=== PATIENT | female | born 1945 | race Caucasian/White ===

== ENCOUNTER → 2023-10-04 11:45 | Outpatient (REF) | payer MEDICARE, MEDICAID, SELFPAY | LOC: HWWDC 11:45 | PROVIDERS: ATTENDING PHYSICIAN Nurse Practitioner | DX: Z12.31 Encounter for screening mammogram for malignant neoplasm of breast (principal) | CPT/HCPCS: 77063; 77067 ==

== ENCOUNTER → 2024-02-04 10:06 | Outpatient (REF) | payer MEDICARE, MEDICAID, SELFPAY | LOC: HWRAD 10:06 | PROVIDERS: ATTENDING PHYSICIAN Surgery | DX: K80.20 Calculus of gallbladder without cholecystitis without obstruction (principal) | CPT/HCPCS: 76700 ==

== ENCOUNTER → 2024-08-02 09:33 | Outpatient (REF) | payer MEDICARE, MEDICAID, SELFPAY | LOC: RAD 09:33 | PROVIDERS: ATTENDING PHYSICIAN Orthopaedic Surgery; FAMILY PHYSICIAN Nurse Practitioner | DX: M19.011 Primary osteoarthritis, right shoulder (principal) | CPT/HCPCS: 73200 ==

== ENCOUNTER → 2024-09-25 13:58 | Outpatient (REF) | payer MEDICARE, MEDICAID, SELFPAY | LOC: RAD 13:58 | PROVIDERS: ATTENDING PHYSICIAN Nurse Practitioner | DX: M81.0 Age-related osteoporosis without current pathological fracture (principal); E66.9 Obesity, unspecified | CPT/HCPCS: 77080 ==

== ENCOUNTER → 2024-12-04 10:51 | Outpatient (REF) | payer MEDICARE, MEDICAID, SELFPAY | LOC: HWWDC 10:51 | PROVIDERS: ATTENDING PHYSICIAN Nurse Practitioner | DX: Z12.31 Encounter for screening mammogram for malignant neoplasm of breast (principal) | CPT/HCPCS: 77063; 77067 ==

== ENCOUNTER → 2025-03-06 11:10 | Outpatient (REF) | payer MEDICARE, MEDICAID, SELFPAY | LOC: RAD 11:10 | PROVIDERS: ATTENDING PHYSICIAN Nurse Practitioner | DX: R07.81 Pleurodynia (principal) | CPT/HCPCS: 71101 ==

== ENCOUNTER 2025-04-08 15:04 | Inpatient (IN) | payer MEDICARE, MEDICAID, SELFPAY ==
[2025-04-08] VITALS (7 sets, daily range): BP systolic 124–135; BP diastolic 64–99; BMI 24.9
[2025-04-08 12:34] LABS: Hematocrit 33.7 % (37.0-47.0); Hemoglobin 12.1 g/dL (12.0-16.0); Mean Corp Hgb Conc. 35.9 g/dL (33.0-37.0); Mean Corpuscular Volume 94.9 fL (81.0-99.0); Nucleated Red Blood Cells % 0 %; Platelet Count 218 10^3/uL (130-400); Red Cell Dist. Width 12.6 % (11.5-14.5)
[2025-04-08 12:48] LABS: ALT (SGPT) 30 U/L (0-35); AST (SGOT) 32 U/L (14-36); Albumin 4.1 g/dl (3.5-5.0); Alkaline Phosphatase 96 U/L (38-126); Blood Urea Nitrogen 12 mg/dl (7-17); Calcium 8.6 mg/dl (8.4-10.2); Carbon Dioxide 25 mmol/L (22-30); Chloride 96 mmol/L (98-107); Estimated Creatinine Clearance 61 ml/min; Glucose 130 mg/dl (70-99); Potassium 4.6 mmol/L (3.5-5.1); Sodium 126 mmol/L (135-145); Total Protein 7.5 g/dl (6.3-8.2); eGFR > 60.00
--- NOTE | 2025-04-08 13:09 | ED.GENMED ---
History of Present Illness
General
Chief Complaint: Cold/Flu/URI Symptoms
Source: patient and correction
Exam Limitations: developmental stage
Time Seen by Provider: 04/08/25 12:54
History of Present Illness
History of Present Illness:
80yoF with a history of seizures, bipolar disorder, and GERD presenting via EMS for evaluation of generalized weakness. Patient is a resident at [facility]. She tested positive for COVID 2 days ago and was started on Paxlovid. Staff
reports that she has been increasing weak and is now unable to stand which is unusual for her. She typically ambulates with a walker and is talkative. She now cannot keep her eyes open. She did have a fall last night but correction staff denies
any injuries from this. Her oxygen saturation was checked today which was 94% and she was sent to the ED for evaluation. Patient currently complains of fatigue and nausea. She denies any chest pain or shortness of breath.
Past History
Past History
ED Past Medical History: GERD, Seizures, Psychiatric (Borderline personality, mental retardation, organic mood disorder,) and Other (Osteoporosis)
ED Past Surgical History: None and Orthopedic (Total right hip replacement)
Social History
Tobacco: Non-smoker
Phy Exam
Physical Exam
Physical Exam:
Appears fatigued, non-toxic
General Physical Exam
General Presentation: no apparent distress
General Skin: warm and dry
General Habitus: elderly
General Mental: alert
General Hydration: dry mucous membranes
ENT Exam
ENT Exam: normocephalic
Cardiovascular Exam
Cardiovascular Exam: regular rate/rhythm
Pulmonary Exam
Pulmonary Exam: no respiratory distress, no rales, no crackles, no rhonchi, no stridor and decreased breath sounds
Neurological Exam
Neurological Exam: alert
Skin Exam
Skin Exam: normal color and warm/dry
Psychiatric Exam
Psychiatric Exam: normal mood/affect
Course
Orders/Labs/Results
Orders:
Orders
04/08/25 12:24
Complete Blood Count/With Diff Urgent
Comprehensive Metabolic Panel Urgent
Serum Osmolality Urgent
TSH Reflex To Free T4 Urgent
Comment: ADD ON
04/08/25 13:06
0.9% Sodium Chloride 500 ml [Nss] 500 ml IV BOLUS
CR Chest - 2 Views Urgent
Comment:
Reason For Exam: COVID+
04/08/25 13:16
Chloride, Urine [S] Urgent
Date Specimen was Collected: 04/08/25
Time Specimen was Collected: 13:12
Osmolality, Random Urine Urgent
Date Specimen was Collected: 04/08/25
Time Specimen was Collected: 13:12
Urine Sodium Urgent
Date Specimen was Collected: 04/08/25
Time Specimen was Collected: 13:12
04/08/25 14:20
Add On- LAB Urgent
Tests Added?: serum osmo, urine NA, tsh with free t4 reflex
04/08/25 14:34
Admit/Transfer Patient As Directed
Co-Sign Provider:
Level of Care: Inpatient admission
Assign to:: Medical/Surgical
Physician / Group: kiersten peters
Diagnosis: Weakness secondary to COVID-19 infection, hyponatremia
Reason for Hospitalization: Weakness secondary to COVID-19 infection, hyponatremia
Expected length of stay greater than two midnights?: Yes
ELOS- Estimated Length of Stay in days: 3
I certify the patient meets the requirements for IP care: Yes
Code Status As Directed
Resuscitation Status: Full Code
04/08/25 14:39
PRN Pain Medication Management As Directed
May give lesser potent ordered pain med per pt: Yes
preference::
Protocol:: Medication orders for pain may be administered in a
manner that supports deferring to patient preference
when the pt is:
- Requesting an ordered lesser potent pain medication.
Least to most potent pain medications are defined
as: acetaminophen < NSAID < tramadol < opioids
(morphine, oxycodone, hydromorphone).
- Requesting a lesser dose of the same medication IF
ORDERED.
- Requesting a less intrusive route of administration
if both routes are prescribed by the provider (PO <
IV).
04/08/25 14:52
COVID-19 Antigen Urgent
Source: Nasal Swab
04/08/25 Dinner
Regular
At Your Request: Full Participation
Does patient need a safe tray?: No
04/08/25 16:58
0.9% Sodium Chloride 1000 ml [Nss] 1,000 ml IV 100 mls/hr
Acetaminophen [Tylenol] 650 mg PO Q4HPRN PRN
Carbamazepine Extended Release [Tegretol Xr (Extended Release)] 400 mg PO TID
Ondansetron Injectable [Zofran] 4 mg IV Q6HPRN PRN
aripiprazole 20 mg PO QHS
dtyxavjguieqx-ZP-apqyzufumdk 10 ml PO Q4H PRN
04/08/25 16:58
Activity As Directed
Activity Level: With Assistance
Comment: Uses walker at baseline
Nursing to Place Non Medication Order As Directed
Physician Order: Patient reports she cannot read and needs help with ordering all of her meals
Above order entered?: Yes
Precautions As Directed
Type of Precautions: Droplet
Comment: covid 19 infection
Vital Signs As Directed
Frequency: Per unit guidelines
Pt Eval And Treat Routine
Activity Level: With Assistance
DX Deep Vein Thrombosis Video Routine
04/08/25 18:00
Enoxaparin Sodium [Lovenox] 40 mg SC QPM
Ferrous Sulfate [Feosol] 325 mg PO QPM
Multivitamin [Theragran] 1 tablet PO QPM
calcium carbonate 500 mg PO QPM
04/08/25 20:00
Lorazepam [Ativan] 0.5 mg PO BID
04/09/25 06:00
Complete Blood Count/With Diff IN AM
Comprehensive Metabolic Panel IN AM
04/09/25 08:00
Famotidine [Pepcid] 40 mg PO DAILY
04/10/25 06:00
Complete Blood Count/With Diff IN AM
Comprehensive Metabolic Panel IN AM
04/11/25 06:00
Complete Blood Count/With Diff IN AM
Comprehensive Metabolic Panel IN AM
Abnormal Lab Results
04/08/25 04/08/25 04/08/25
12 13:16 14:52
WBC 4.7 L 10^3/uL
(4.8-10.8)
RBC 3.55 L 10^6/uL
(4.20-5.40)
Hct 33.7 L %
(37.0-47.0)
MCH 34.1 H pg
(27.0-31.0)
Absolute Lymphs (auto) 0.5 L 10^3/uL
(1.2-3.4)
Neutrophils % 81.1 H %
(42.2-75.2)
Lymphocytes % 10.4 L %
(20.5-51.1)
Sodium 126 L mmol/L
(135-145)
Chloride 96 L mmol/L
(98-107)
Creatinine 0.4 L mg/dL
(0.6-1.0)
Glucose 130 H mg/dl
(70-99)
Serum Osmolality 268 L mOsm/kg
(275-300)
Urine Sodium 16 L mmol/L
(30-90)
SARS-CoV-2 Antigen Positive A
(Negative)
04/08/25 12:24
04/08/25 12:24
Vital Signs
Initial and Last Documented VS:
Initial Vital Signs
BP Pulse Ox
124/99 97
04/08/25 11:54 04/08/25 11:54
Last Documented Vital Signs
Temp Pulse Resp BP Pulse Ox
97.6 F 94 16 127/71 95
04/08/25 17:06 04/08/25 17:06 04/08/25 15:02 04/08/25 17:06 04/08/25 18:24
MDM/Problems Addressed
Differential Diagnosis Includes:
80yoF here with weakness. Tested positive for COVID 2 days ago. Had a fall last night at her correction. She appears fatigued on exam but is nontoxic. Oxygen saturation 97% on room air. Mucous membranes are dry. Differential diagnosis includes
but is not limited to: COVID, dehydration, NICOL, failure to thrive
Labs obtained prior to initial exam. Sodium is 126. Last sodium was 133 in 2022. CXR added which does not show any pneumonia. She clinically appears hypovolemic. IV fluid bolus ordered and patient admitted for further management.
*Pulse Oximetry
SaO2: 95
Oxygen Mode of Delivery: Room air
Patient hypoxic: no (97%)
*Critical Care Note
Total Time (30-74mins, 75-104mins- exclusive of procedures): Not Applicable
ED Attending Note
-
Portions of this chart may have been created with voice recognition software.� Occasional wrong word or��sound alike� substitutions may have occurred due to the inherent limitations of voice recognition software.
Discharge Plan
Departure
Patient Disposition: Admit
Date of Disposition: 04/08/25
Time of Disposition: 14:12
Presentation/result/management discussed w/ accepting MD/DO: Hospitalist
Discharge Problem:
COVID-19, Hyponatremia, Generalized weakness
Interventions
Interventions:
*Risk Screen - Suicide Last Done: 04/08/25 11:57
*General Assessment Last Done: 04/08/25 11:57
*Neglect/Abuse Screening Last Done: 04/08/25 11:57
*ED- Fall Risk Assessment Last Done: 04/08/25 11:57
*Nursing Disposition Last Done: 04/08/25 15:37
ED- Pulmonary Assessment Last Done: 04/08/25 11:57
Discharge Date and Time
Discharge Date/Time: 04/08/25 16:38
[2025-04-08] MEDS: NSS 500 IV (13:21)
--- NOTE | 2025-04-08 14:17 | HPS.HSE ---
Family Physician
-
Family Physician:
Chief Complaint
-
Weakness secondary to COVID-19 infection
History of Present Illness
80-year-old female who is a resident at [facility] who tested +2 days ago for COVID and was started on Paxlovid. Staff reported increased weakness unable to ambulate with her walker unable to keep eyes open. There was a reported fall last
night staff denied any injuries. Patient is awake alert oriented to name, place, symptoms. She reports feeling very tired and with nausea. She denies headache, fever, chills, chest pain, palpitations, cough, shortness of breath, vomiting,
diarrhea, urinary symptoms. She tells me she has difficulty reading and while in the hospital she needs help ordering food. In the ER she was noted to be hyponatremic with NA of 126. Patient has past medical history of mental retardation, organic
mood disorder, bipolar disorder, seizures, GERD, osteoporosis, chronic ambulatory dysfunction with walker at baseline, iron deficiency, restless leg syndrome.
Medical History
Past Medical History
Past Medical History: Reports Other
Additional Past Medical History:
mental retardation
organic mood disorder
bipolar disorder
seizures
GERD
osteoporosis
chronic ambulatory dysfunction with walker at baseline.
Left mastectomy
iron deficiency
restless leg syndrome.
Past Surgical History: Reports Other
Additional Past Surgical History:
Left mastectomy
Right total hip replacement
Social History
Tobacco: Non-smoker
Alcohol: None
Drug: None
Personal: Single
Living: Other ([facility])
Employment: Disabled
Family History
Family History: Not pertinent
Allergies / Home Medications
Allergies reflects when Allergies were last updated in [facility].
Home Medications with original date entered in [facility]
Allergy/Medication List:
Allergies
Allergy/AdvReac Type Severity Reaction Status Date / Time
caffeine Allergy Unknown Verified 04/08/25 11:56
Hydantoins Allergy Unknown Verified 04/08/25 11:56
phenytoin Allergy Unknown Verified 04/08/25 11:56
thioridazine Allergy Unknown Verified 04/08/25 11:56
NOT.[id number] - Not Allergy Unknown Uncoded 04/08/25 11:56
Converted 42. See Text.
NOT.[id number] - Not Allergy Unknown Uncoded 04/08/25 11:56
Converted 45. See Text.
Home Medications
acetaminophen 325 mg tablet 650 mg PO TIDPRN PRN mild pain/fever 04/08/25
aripiprazole 20 mg tablet 20 mg PO QHS 04/08/25
calcium carbonate 500 mg PO QPM 04/08/25
carbamazepine 400 mg tablet,extended release,12 hr 400 mg PO TID 04/08/25
famotidine 40 mg tablet 40 mg PO DAILY 04/08/25
ferrous sulfate 325 mg (65 mg iron) tablet 325 mg PO QPM 04/08/25
lidocaine 4 % topical patch 1 patch topical DAILY PRN pain/discomfort 04/08/25
lorazepam 0.5 mg tablet 0.5 mg PO BID 04/08/25
mupirocin 2 % topical ointment 1 applic topical BID under nose 04/08/25
nirmatrelvir 300 mg (150 mg x2)-ritonavir 100 mg tablet,dose pack (Paxlovid) 3 ea PO BID 04/08/25
flybxlegawrri-LJ-mmafljdmphc 5 mg-10 mg-100 mg/5 mL oral liquid 10 ml PO Q4H PRN cough 04/08/25
therapeutic multivitamin 1 tab PO QPM 04/08/25
Review of Systems
-
History Source: [facility]
A 12 point ROS was completed and negative except as noted: Yes
Constitutional: Reports Fatigue; Denies Fever or Chills
EENT: Reports Other (Dry mouth); Denies Sore Throat or Runny Nose
Respiratory: Denies Cough or Trouble Breathing
Cardiac: Denies Chest Pain, Diaphoresis, Palpitations or Syncope
Abdomen/GI: Reports Nausea; Denies Abdominal Pain, Vomiting, Diarrhea or Constipated
: Denies Dysuria, Frequency, Flank Pain or Incontinence
Musculoskeletal: Denies Joint Pain or Edema
Skin: Denies Itching or Rash
Neurological: Reports Weakness (Generalized); Denies Dizzy or Headache
Endocrine: Reports No Symptoms
Hematologic/Lymphatic: Reports No Symptoms
Psych: Reports Calm
Physical Exam
Vital Signs
Vital Signs
Temp Pulse Resp BP Pulse Ox
99 F 49 20 133/80 95
04/08/25 12:00 04/08/25 11:57 04/08/25 11:57 04/08/25 12:00 04/08/25 13:11
Physical Exam
General: No Fever or Chills
HEENT: NormoCephalic, Anicteric, PERRLA, [place] Conjunctivae, No Ptosis and Other (Dry oral mucosa)
Respiratory: Clear; No Wheezes, Rales or Rhonchi
Cardiac: S1/S2 and Regular Rhythm; No Murmur, Rub, Gallop or Peripheral Edema
Breast: Deferred by me
GI: Soft, Non Tender, Non Distended, Normal Bowel Sounds and No Hepatosplenomegaly
Rectal: Deferred by Provider
Genito-urinary: Deferred by me
Musculoskeletal: No Clubbing, No Cyanosis and No Edema
Skin: Warm and Dry; No Rash
Neuro: AO x 3 (Oriented to name, place, year, history), Cranial Nerves Intact and No Sensory Deficits; No Slurred Speech, Facial Droop or Tremors
Psych: Calm
Laboratory Results
-
04/08/25 12:24
04/08/25 12:24
Laboratory Results
Total Bilirubin 0.4 mg/dl (0.2-1.3) 04/08/25 12:24
AST 32 U/L (14-36) 04/08/25 12:24
ALT 30 U/L (0-35) 04/08/25 12:24
Alkaline Phosphatase 96 U/L (38-126) 04/08/25 12:24
Impression/Plan
-
Impression/plan:
Admit to MedSurg
#Generalized weakness with hyponatremia secondary to COVID-19 infection
#Leukopenia likely secondary to COVID-19 infection
Tested positive for COVID outpatient 04/06/2025 started on Paxlovid
-No hypoxemia, WBC 4.7, no hypoxia, afebrile
COVID-19 precautions
-Continue Paxlovid 150 mg twice daily
- Check COVID swab for confirmation
- IV NSS, Tylenol as needed
- PT consult
- Urine NA, urine Osmo, serum Osmo, TSH with free T4 reflex
#History of mental retardation
Organic mood disorder
- [facility] patient is oriented x 3 to name, place, year, history
#History of seizures
- Continue Tegretol 40 mg 3 times daily
#Bipolar disorder
- Continue lorazepam 0.5 mg twice daily
#Osteoporosis
No reported meds
#GERD
No reported meds
# Restless leg
Continue omeprazole 20 mg at bedtime
#Iron deficiency
- Continue ferrous sulfate
#Chronic ambulatory dysfunction uses walker at baseline
- Consult PT
DVT prophylaxis
Subcu Lovenox
Full code
--- NOTE | 2025-04-08 14:40 | W.PN.UPDATE ---
Update Note
Progress Note Update
This is an addendum to H&P written by Juanita Lewis on 04/08/2025. �Patient seen and examined independently with COIL MACHINE OPERATOR.
80-year-old female past medical history of seizures, bipolar disorder, GERD, presenting with generalized weakness. �Tested positive for COVID 2 days ago and started on Paxlovid. �Now with increasing weakness and inability to stand. �Normally
ambulates with walker. �Had fall last night. �No injuries. �O2 saturation 94%. �Patient with fatigue and nausea.
Patient not hypoxemic here.� Appears dry on exam. Labs show hyponatremia sodium 126. �Leukopenia 4.7.
Chest x-ray shows no acute process.
Patient with hyponatremia, leukopenia secondary to COVID infection. �Patient not hypoxemic. �Continue Paxlovid.
Check urine Osmo, urine sodium. �Continue IV fluids. �PT/OT.
[2025-04-08 15:00] LABS: COVID-19 Antigen Positive (Negative)
--- NOTE | 2025-04-08 15:06 | CM ---
CM reviewed chart, did not meet with pt as she is Covid positive, information obtained from old records.
Pt lives at [facility], [address]
Needs assistance with ADLs and personal care. Ambulates with RW, fell last night.
PCP: Nena Matute
Unsure of local pharmacy
CM will continue to follow for all discharge planning needs.
[2025-04-08] MEDS: OSCAL CAL 500 500 MG PO (17:28)
[2025-04-08] MEDS: ZOFRAN 4 MG IV (17:29)
[2025-04-08] MEDS: NSS 1000 IV (17:34)
[2025-04-08] MEDS: FEOSOL 325 MG PO (17:41)
[2025-04-08] MEDS: THERAGRAN 1 TABLET PO (17:41)
[2025-04-08] MEDS: TEGRETOL XR (EXTENDED RELEASE) 400 MG PO ×2 (17:54→20:55)
[2025-04-08] MEDS: ATIVAN 0.5 MG PO (20:55)
[2025-04-08] MEDS: ABILIFY 20 MG PO (20:55)
[2025-04-09] MEDS: NSS 1000 IV (03:50)
[2025-04-09 07:38] LABS: Hematocrit 33.7 % (37.0-47.0); Hemoglobin 11.9 g/dL (12.0-16.0); Mean Corp Hgb Conc. 35.3 g/dL (33.0-37.0); Mean Corpuscular Volume 95.5 fL (81.0-99.0); Nucleated Red Blood Cells % 0 %; Platelet Count 226 10^3/uL (130-400); Red Cell Dist. Width 12.8 % (11.5-14.5)
[2025-04-09 07:43] VITALS: BP 131/63
[2025-04-09] MEDS: PEPCID 40 MG PO (07:47)
[2025-04-09] MEDS: ATIVAN 0.5 MG PO (07:47)
[2025-04-09] MEDS: TEGRETOL XR (EXTENDED RELEASE) 400 MG PO ×2 (07:47→15:00)
[2025-04-09 07:56] LABS: ALT (SGPT) 24 U/L (0-35); AST (SGOT) 28 U/L (14-36); Albumin 3.6 g/dl (3.5-5.0); Alkaline Phosphatase 89 U/L (38-126); Blood Urea Nitrogen 9 mg/dl (7-17); Calcium 8.3 mg/dl (8.4-10.2); Carbon Dioxide 27 mmol/L (22-30); Chloride 103 mmol/L (98-107); Estimated Creatinine Clearance 61 ml/min; Glucose 92 mg/dl (70-99); Potassium 4.5 mmol/L (3.5-5.1); Sodium 133 mmol/L (135-145); Total Protein 6.5 g/dl (6.3-8.2); eGFR > 60.00
[2025-04-09 10:16] VITALS: BP 125/74; BP 136/70; O2SAT 95
--- NOTE | 2025-04-09 12:51 | W.PN.HOSP.TC ---
Addendum entered and electronically signed by Wiliam Rasmussen MD 04/09/25 15:20:
Disregard mental retardation; correct to cognitive impairment
Original Note:
Today's Communication/Plan
-
Monitor vital signs see plan
Discussed with design eng
Continue to monitor sodium
PT recommended home health
No Paxlovid given interaction with seizure medication
Discharge today
Time of discharge 37 minutes
Assessment / Plan
Assessment / Plan
General: No Fever or Chills
HEENT: NormoCephalic, Anicteric, PERRLA, [place] Conjunctivae
Respiratory: Clear; No Wheezes, Rales or Rhonchi
Cardiac: S1/S2 and Regular Rhythm; No Murmur, Rub, Gallop or Peripheral Edema
GI: Soft, Non Tender, Non Distended, Normal Bowel Sounds
Musculoskeletal: No Edema
Neuro: AO x 3 (Oriented to name, place, year, history)
Psych: Calm
Generalized weakness with hyponatremia secondary to COVID-19 infection
#Leukopenia likely secondary to COVID-19 infection
Tested positive for COVID outpatient 04/06/2025 started on Paxlovid
-No hypoxemia, WBC 4.7, no hypoxia, afebrile
COVID-19 precautions
Cannot do Paxlovid since it interacts with her seizure medication. Patient at this time is not hypoxic and is currently feeling better
- Check COVID swab for confirmation
- IV NSS, Tylenol as needed
- PT evaluated and recommended home health
Hyponatremia
Improved with fluids
Continue to monitor
#History of mental retardation
Organic mood disorder
- Lives in [facility] patient is oriented x 3 to name, place, year, history
#History of seizures
- Continue Tegretol 40 mg 3 times daily
#Bipolar disorder
- Continue lorazepam 0.5 mg twice daily
#Osteoporosis
No reported meds
#GERD
No reported meds
# Restless leg
Continue omeprazole 20 mg at bedtime
#Iron deficiency
- Continue ferrous sulfate
#Chronic ambulatory dysfunction uses walker at baseline
- PT recommended home health
DVT prophylaxis
Subcu Lovenox
Full code
Anticipated Discharge: Today
Subjective/Interval History
-
Date of Service: April 09, 2025
Denies pain
Objective Data
-
Labs:
Laboratory Results
04/09/25
06:41
WBC 4.0 L
Hgb 11.9 L
Hct 33.7 L
Plt Count 226
Sodium 133 L
Potassium 4.5
Chloride 103
Carbon Dioxide 27
BUN 9
Creatinine 0.5 L
Glucose 92
Calcium 8.3 L
Total Bilirubin 0.5
AST 28
ALT 24
Alkaline Phosphatase 89
Vital Signs:
Vital Signs
Temp Pulse Resp BP Pulse Ox
97.6 F 64 18 131/63 98
04/09/25 07:43 04/09/25 07:43 04/09/25 12:02 04/09/25 07:43 04/09/25 10:16
I&O
04/08/25 04/09/25 04/10/25
06:59 06:59 06:59
Intake Total 1480 / 1480
Output Total 450 / 450
Balance 1030 / 1030
--- NOTE | 2025-04-09 13:03 | W.DCSUMMARY ---
Discharge Summary
Discharge Data
Date of Admission: 04/08/25
Date of Discharge: 04/09/25
-
Pending Results: No
Hospital Course
80-year-old female with past medical history of mood disorder, cognitive impairment, seizure, bipolar disorder, osteoporosis, GERD, restless leg syndrome, iron deficiency, chronic ambulatory dysfunction came to the hospital with generalized weakness
and hyponatremia which was likely thought was secondary to COVID-19 infection. Patient Paxlovid was discontinued as it was interacting with her seizure medication. She was not hypoxic throughout hospitalization and did not require any oxygen. Her
sodium continue to improve with fluids. Once her sodium improved and she was feeling better, she was then discharged back to her previous living facility with instructions to follow-up closely with her primary care provider outpatient.
Discharge Plan
-
Patient Disposition: Other
Discharge Diagnosis/Procedures: Hyponatremia
COVID-19 infection
Diet: As tolerated
Activity: As tolerated
Driving Restrictions: As prior to admission
Bathing Restrictions: None
Blood Work: BMP next week with primary care provider
Referrals:
Nena Matute MD [Family Provider, Internal Medicine] - in less than 1 week
Prescriptions:
Continued
acetaminophen 325 mg Tablet
650 mg PO TIDPRN PRN (Reason: mild pain/fever)
lidocaine 4 % Adhesive Patch,Medicated
1 patch TOPICAL DAILY MDD no more than 3x/day PRN (Reason: pain/discomfort)
Patient Comments:
directions do not state where the patch is applied
famotidine 40 mg tablet
40 mg PO DAILY
therapeutic multivitamin Tablet
1 tab PO QPM
carbamazepine 400 mg tablet extended release 12 hr
400 mg PO TID
lorazepam 0.5 mg tablet
0.5 mg PO BID
ferrous sulfate 325 mg (65 mg iron) Tablet
325 mg PO QPM
otezzmgiyoypc-EJ-zitnxadlknm 5-10-100 mg/5 mL Liquid
10 ml PO Q4H PRN (Reason: cough)
calcium carbonate 500 mg calcium (1,250 mg) Tablet,Chewable
500 mg PO QPM
mupirocin 2 % ointment
1 applic TOPICAL BID
aripiprazole 20 mg tablet
20 mg PO QHS
Discontinued
Paxlovid 300 mg (150 mg x 2)-100 mg tablets,dose pack
3 ea PO BID
Rx Instructions:
started 04/06/25 pm dose
Discharge Orders:
Discharge Patient (As Directed); Ordered 04/09/25
Ordered By: Wiliam Rasmussen
Discharge Date and Time
Discharge Date/Time: 04/09/25 16:50
Print Language: PASHTO
--- NOTE | 2025-04-09 14:27 | CM ---
professional development manager reviewed patient's chart and plan is for discharge today to [facility], per [facility] they are unable to transport and w/c van has been set up for 4:30pm apple picking supervisor, patient was seen by PT and recommendation for home care,
options reviewed with Crystal at [facility], nursing and they have selected [facility].
Plan; 4:30pm apple picking supervisor to [facility], w/c van.
[facility]
[phone]
[2025-04-09] MEDS: NSS IV (14:59)
[2025-04-09 15:36] VITALS: BP 130/72
--- NOTE | 2025-04-09 16:44 | PTCARENOTE ---
Patient discharged back to [facility], report given to Vandana at facility. This RN removed patient's IV, dressed patient in home clothes, and assisted in gathering belongings in room. Vitals taken by tech prior to DC stable. Patient
transported to facility via [facility] wheelchair van.
[2025-04-10 21:19] LABS: 24 Hour Urine Total Volume Random mL; Chloride, Urine 30 mmol/L; Creatinine, Urine per Volume 120 mg/dL; Urine Collection Length Random hr
== END 2025-04-09 16:50 | disposition home or self-care (01) | DRG 640 ==
LOC: 2 NORTH 15:04
PROVIDERS: Clinical Nurse Specialist Family Health; Physician Assistant; ADMITTING PHYSICIAN Hospitalist; ATTENDING PHYSICIAN Internal Medicine; EMERGENCY PHYSICIAN Emergency Medicine; FAMILY PHYSICIAN Internal Medicine
DX: E87.1 Hypo-osmolality and hyponatremia (principal); U07.1 COVID-19; G25.81 Restless legs syndrome; F60.3 Borderline personality disorder; F31.9 Bipolar disorder, unspecified; E61.1 Iron deficiency; K21.9 Gastro-esophageal reflux disease without esophagitis; M81.0 Age-related osteoporosis without current pathological fracture; R56.9 Unspecified convulsions; G31.84 Mild cognitive impairment of uncertain or unknown etiology; R26.89 Other abnormalities of gait and mobility; Z79.899 Other long term (current) drug therapy; Z96.641 Presence of right artificial hip joint; Z90.12 Acquired absence of left breast and nipple; Z88.8 Allergy status to other drugs, medicaments and biological substances
CPT/HCPCS: 71046; 80053; 82436; 83930; 83935; 84300; 84443; 85025; 87070; 87811; 96360; 97162; 99285

== ENCOUNTER 2025-04-11 13:35 | Emergency (ER) | payer MEDICARE, MEDICAID, SELFPAY ==
[2025-04-11 13:38] VITALS: BP 131/74
--- NOTE | 2025-04-11 15:53 | ED.MUSCINJ ---
HPI-Injury
General
Chief Complaint: Musculo-Skeletal Complaint
Source: patient
Exam Limitations: none
Time Seen by Provider: 04/11/25 15:28
History of Present Illness-Injury
Initial Injury comments:
She is a 80-year-old female presents complaining of right shoulder pain starting 3 days ago after a fall. She has a history of a shoulder replacement. She noticed increased swelling and bruising around the shoulder. No other complaints. She did
not hit her head
Past History
Past History
ED Past Medical History: GERD, Seizures, Psychiatric (Borderline personality, mental retardation, organic mood disorder,) and Other (Osteoporosis)
ED Past Surgical History: None and Orthopedic (Total right hip replacement)
Social History
Tobacco: Non-smoker
Phy Exam
Physical Exam
Physical Exam:
General: well appearing female NAD
HEENT: NC/AT
MSK: Tender over the superior right shoulder with ecchymosis and swelling. No obvious deformity
Injury Course
Orders/Labs/Results
Orders:
Orders
04/11/25 15:52
CR Clavicle - Right Complete Urgent
Comment:
Reason For Exam: pain
CR Shoulder, Trauma - Right Urgent
Comment:
Reason For Exam: fall
04/11/25 17:07
Sling Right-Treatment ONCE
MDM/Problems Addressed
Differential Diagnosis Includes:
Right shoulder pain after fall. Consider clavicle fracture versus periprosthetic fracture versus dislocation versus contusion
X-rays right clavicle and shoulder pending
*Pulse Oximetry
SaO2: 94
Oxygen Mode of Delivery: Room air
Patient hypoxic: no
*Critical Care Note
Total Time (30-74mins, 75-104mins- exclusive of procedures): Not Applicable
Update Note
Update Note:
X-ray demonstrates midshaft clavicle fracture. The shoulder looks well otherwise. Patient reassured. Sling applied. Stable for discharge back to facility
ED Attending Note
-
Portions of this chart may have been created with voice recognition software.� Occasional wrong word or��sound alike� substitutions may have occurred due to the inherent limitations of voice recognition software.
Discharge Plan
Departure
Patient Disposition: Home (Routine Discharge)
Date of Disposition: 04/11/25
Time of Disposition: 17:56
Patient with high blood pressure during this ER visit?: No
Discharge Problem:
Clavicle fracture
Instructions: Muscle and Bone Pain (DC)
Prescriptions:
No Action
acetaminophen 325 mg Tablet
650 mg PO TIDPRN PRN (Reason: mild pain/fever)
famotidine 40 mg tablet
40 mg PO DAILY
therapeutic multivitamin Tablet
1 tab PO QPM
carbamazepine 400 mg tablet extended release 12 hr
400 mg PO TID
lorazepam 0.5 mg tablet
0.5 mg PO BID
ferrous sulfate 325 mg (65 mg iron) Tablet
325 mg PO QPM
Wal-Tussin Cough and Cold CF 5-10-100 mg/5 mL Liquid
10 ml PO Q4HPRN PRN (Reason: cough)
calcium carbonate 500 mg calcium (1,250 mg) Tablet,Chewable
500 mg PO QPM
mupirocin 2 % ointment
1 applic TOPICAL BID
aripiprazole 20 mg tablet
20 mg PO QHS
cyclobenzaprine [Flexeril] 10 mg Tablet
10 mg PO TIDPRN PRN (Reason: spasms)
polyethylene glycol 3350 [Miralax] 17 gram Powder In Packet
17 g PO DAILYPRN PRN (Reason: constipation)
clotrimazole 2 % Cream
1 appful topical BIDPRN PRN (Reason: b/l feet)
Refresh Optive 0.5-0.9 % Drops
1 drp BOTH EYES BIDPRN PRN (Reason: dryness)
lidocaine 4 % Adhesive Patch,Medicated
1 patch TOPICAL DAILYPRN PRN (Reason: may apply up to 3 patches)
valacyclovir [Valtrex] 1 gram Tablet
1,000 mg PO BIDPRN PRN (Reason: cold sores)
loperamide 2 mg Tablet
2 mg PO DAILYPRN PRN (Reason: dairrhea)
Rx Instructions:
take 4mg after first loose stool then 2mg there after
Debrox 6.5 % Drops
5 drp OTIC (EAR) BIDPRN PRN (Reason: build up)
Referrals:
Katiana Gil PA [Family Provider, Internal Medicine]
Geovani Brandt MD [Active, Orthopedics]
Activity Restrictions/Additional Instructions:
As discussed, you have a fracture of your collarbone. Use a sling for support. Follow-up with orthopedics. You may use Tylenol for pain
Interventions
Interventions:
*Risk Screen - Suicide Last Done: 04/11/25 13:36
*Neglect/Abuse Screening Last Done: 04/11/25 13:36
ED-Musculoskeletal Assessment Last Done: 04/11/25 17:50
Discharge Date and Time
Print Language: LITHUANIAN
[2025-04-11 17:48] VITALS: BP 130/73
[2025-04-11 17:56] VITALS: BMI 24.4
[2025-04-11 18:00] VITALS: BP 155/78
== END 2025-04-11 19:20 | disposition home or self-care (01) ==
LOC: EMR 13:35
PROVIDERS: EMERGENCY PHYSICIAN Emergency Medicine; FAMILY PHYSICIAN Internal Medicine
DX: S42.021A Displaced fracture of shaft of right clavicle, initial encounter for closed fracture (principal); W19.XXXA Unspecified fall, initial encounter; F79 Unspecified intellectual disabilities
CPT/HCPCS: 99283; 73000; 73030